=== PATIENT | female | born 1995 | race Caucasian/White ===

== ENCOUNTER 2016-11-29 22:22 | Emergency (ER) | payer OTHER ==
[~2016-11-29] VITALS: Ht 165.1 cm; Wt 62.1 kg
--- NOTE | ~2016-11-29 | CT2 ---
[facility] A Service [facility] RADIOLOGY TEXT RESULTS PATIENT: ABIEL SAGASTUME LOCATION: SED : 93 UNIT #: [id number] AGE: [address]: Sami Conde MD SEX: F ORDER DR: [id number] [place] [id number] E MR#: [id number] Acc #: [id number] NAME: ABIEL SAGASTUME : 1995 SEX: F STUDY DATE/TIME: 11/30/2016 1:14 UNIT: SED ROOM: STUDY DESCRIPTION: CT Abd and Pelv W Cont Attending Physician: Sami Conde M.D. Ordering Physician: Pablo Conde M.D. Primary Care Physician: Primary Care Physician No MEDICAL IMAGING REPORT This report is preliminary unless electronic signature is present. EXAM CT abdomen and pelvis with contrast, 11/30/2016 HISTORY 21-year-old female in the ED complaining of nausea and diarrhea since earlier this morning. Sharp pains in the lower abdomen beginning at about [address] examination of the abdomen and pelvis with oral and IV contrast. This CT exam was performed with one or more of the following radiation dose reduction techniques: automatic exposure control, adjustment of mA and/or kV according to patient size, and iterative reconstruction. FINDINGS ABDOMEN FINDINGS: The liver, pancreas, spleen and kidneys are normal in size and appearance. Nondistended gallbladder. No bile duct dilatation. Small bowel and colon are normal in caliber and appearance. No evidence of acute appendicitis. PELVIS FINDINGS: Uterus, ovaries, urinary bladder and rectum are within normal limits. No inguinal hernia or abdominal wall hernia. Limited lung base images show no active disease in the lower chest. IMPRESSION Negative CT examination of the abdomen and pelvis. [facility] A Service [facility] RADIOLOGY TEXT RESULTS PATIENT: ABIEL SAGASTUME LOCATION: SED : 93 UNIT #: [id number] AGE: [address]: Sami Conde MD SEX: F ORDER DR: Dictated by... Carson Khan M.D. THIS IS AN ELECTRONICALLY VERIFIED REPORT Carson Khan M.D. at 11/30/2016 5:59 AM AURELIA/dory TD: 11/30/2016 01:56 JOB #: [id number] MEDICAL IMAGING REPORT Page 1 of 1
--- NOTE | ~2016-11-29 | US96 ---
[facility] A Service [facility] RADIOLOGY TEXT RESULTS PATIENT: ABIEL SAGASTUME LOCATION: SED : 93 UNIT #: [id number] AGE: [address]: Sami Conde MD SEX: F ORDER DR: [id number] [address] [id number] E MR#: [id number] Acc #: [id number] NAME: ABIEL SAGASTUME : 1995 SEX: F STUDY DATE/TIME: 11/30/2016 2:55 UNIT: SED ROOM: STUDY DESCRIPTION: US Pelvic Duplex Complete Attending Physician: Sami Conde M.D. Ordering Physician: Pablo Conde M.D. Primary Care Physician: No Primary Care Physician MEDICAL IMAGING REPORT This report is preliminary unless electronic signature is present. EXAM Ultrasound pelvis, 11/30/2016. HISTORY 21-year-old female in the ED complaining of left-side pelvic pain over the last 8 hours. TECHNIQUE Pelvic ultrasound examination was performed transabdominally and endovaginally. FINDINGS The uterus and both ovaries are normal in size and ultrasound appearance. No uterine mass or endometrial fluid. No dominant ovary cyst, adnexal region mass, or free pelvic fluid. Limited Doppler evaluation documents bilateral ovary blood flow. IMPRESSION Normal pelvic ultrasound examination. Dictated by... Carson Khan M.D. THIS IS AN ELECTRONICALLY VERIFIED REPORT Carson Khan M.D. at 11/30/2016 6:00 AM VIRYW/corrie TD: 11/30/2016 04:03 JOB #: [id number] [facility] A [facility] RADIOLOGY TEXT RESULTS PATIENT: ABIEL SAGASTUME LOCATION: SED : 93 UNIT #: [id number] AGE: [address]: Sami Conde MD SEX: F ORDER DR: MEDICAL IMAGING REPORT Page 1 of 1
[2016-11-29] MEDS ORDERED: NO MEDICATIONS (22:40)
[2016-11-29 23:19] LABS: URINE SOURCE CLEAN CATCH
[2016-11-29 23:21] LABS: MICRO INDICATED? YES; URINE APPEARANCE CLEAR; URINE BILIRUBIN NEG (NEG); URINE BLOOD TRACE-INTACT (NEG); URINE COLOR YELLOW; URINE GLUCOSE NEG (NORM); URINE KETONE NEG (NEG); URINE LEUKOCYTE ESTERASE NEG (NEG); URINE NITRATE NEG (NEG); URINE PH 7.5 (5-8); URINE PROTEIN NEG (NEG); URINE UROBILINOGEN 0.2 MG/DL (NORM)
[2016-11-29 23:30] LABS: BASOPHIL# 0.1 X10e3 (0-0.3); EOSINOPHIL# 0.2 X10e3 (0-0.7); EOSINOPHIL% 2.6 % (0.0-7.0); HEMATOCRIT 40.6 % (35.0-45.0); LYMPHOCYTE# 2.8 X10e3 (1.0-3.5); LYMPHOCYTE% 30.1 % (17.0-45.0); MEAN CORPUSCULAR HEMOGLOBIN 32.5 PG (28-34); MEAN CORPUSCULAR HGB CONC 34.5 g/dL (30-36); MEAN PLATELET VOLUME 8.9 FL (6.5-11.5); MONOCYTE# 0.8 X10e3 (0-1.0); MONOCYTE% 8.4 % (3.0-12.0); NEUTROPHIL# 5.4 X10e3 (1.5-7.1); NEUTROPHIL% 57.9 % (40-75); PLATELET COUNT 195 X10e3 (140-420); RED BLOOD COUNT 4.32 X10e (3.90-5.30); RED CELL DISTRIBUTION WIDTH 12.4 % (11.0-15.5); WHITE BLOOD COUNT 9.4 X10e3 (4.0-10.5)
[2016-11-29 23:31] LABS: CULTURE INDICATED? NO; URINE AMORPHOUS SEDIMENT AMORP PHOSPHATES; URINE BACTERIA NEG (NEG); URINE SQUAMOUS EPITHELIAL CELL OCCAS /[HPF]; URINE WBC 0-2 /[HPF] (0-5)
[2016-11-29 23:32] LABS: DIFF IND NO
[2016-11-29 23:51] LABS: ALBUMIN SERUM 4.3 g/dL (3.5-5.0); BILIRUBIN, DIRECT 0.1 mg/dL (0.0-0.2); BILIRUBIN,INDIRECT 0.4 mg/dL (0.0-0.9); BILIRUBIN,TOTAL 0.5 mg/dL (0.2-2.0); BUN/CREATININE RATIO 12.5; CALCIUM SERUM 9.6 mg/dL (8.4-10.2); CREATININE SERUM 0.8 mg/dL (0.6-1.4); POTASSIUM 3.2 mmol/L (3.5-5.1); PROTEIN TOTAL SERUM 7.7 g/dL (6.0-8.3)
== END 2016-11-30 04:22 | disposition home or self-care (01) ==
LOC: SED 22:22
PROVIDERS: Emergency Medicine
DX: N93.8 Other specified abnormal uterine and vaginal bleeding (principal)
CPT/HCPCS: 36415; 74177; 76830; 76856; 80048; 80076; 81003; 82150; 83690; 84703; 85025; 99284; Q9967